=== PATIENT | female | born 1990 | race Caucasian/White ===

== ENCOUNTER 2021-02-07 18:10 | Emergency (ER) | payer OTHER ==
[2021-02-07 19:34] LABS: BASOPHIL 0.7 % (0-2); EOSINOPHIL 6.2 % (0-5); HCT 43.3 % (37.0-47.0); HGB 13.9 g/dl (12.5-16.0); LYMPHOCYTE 23.8 % (15-48); MCH 27.5 pg (25.0-31.0); MCHC 32.1 g/dL (32.0-36.0); MCV 85.6 fL (78.0-100.0); MONOCYTE 5.5 % (0-12); MPV 11.9 fL (6.0-9.5); NEUTROPHIL 63.5 % (41-80); NRBC 0; PLT 225 K/uL (150-400); RBC 5.06 M/uL (4.20-5.40); RDW 12.5 % (11.5-14.0); WBC 8.6 K/uL (4.0-10.5)
[2021-02-07 19:43] LABS: BUN/CREAT RATIO (CALC) 15.5 RATIO; CREATININE 0.71 mg/dL (0.51-0.95); POTASSIUM 3.9 mmol/L (3.5-5.1)
== END 2021-02-07 21:22 | disposition home or self-care (01) ==
LOC: FER 18:10
PROVIDERS: Nurse Practitioner Family
DX: B34.9 Viral infection, unspecified (principal); Z20.822 Contact with and (suspected) exposure to COVID-19; Z88.1 Allergy status to other antibiotic agents
CPT/HCPCS: 36415; 80048; 85025; J2405; J7030; U0002